=== PATIENT | female | born 1960 | race Caucasian/White ===

== ENCOUNTER → 2017-05-19 | Outpatient (CLI) | payer BC ==
--- NOTE | ~2017-05-19 | US128 ---
[id number] [address] [id number] O MR#: [id number] Acc #: [id number] NAME: AILEEN PAIGE : 1960 SEX: F STUDY DATE/TIME: 05/19/2017 9:41 UNIT: [facility] ROOM: STUDY DESCRIPTION: Thyroid Attending Physician: Panfilo Faustin M.D. Referring Physician: Panfilo Faustin M.D. Ordering Physician: Panfilo Faustin M.D. Primary Care Physician: Juma Aguiar M.D. MEDICAL IMAGING REPORT This report is preliminary unless electronic signature is present. EXAM Thyroid ultrasound, 05/19/2017 INDICATION 56-year-old female with history of thyroid nodules. TECHNIQUE Sonographic imaging of the thyroid gland was performed and compared with 10/07/2016 FINDINGS The right thyroid lobe measures 2.1 cm x 2.9 cm x 4.6 cm and the left 2.1 cm x 2.1 cm x 5.1 cm. There is heterogeneity of both thyroid lobes. Thyroid isthmus measures approximately 7 mm. Vascularity within normal limits. There are multiple small subcentimeter short-axis nodules in the right thyroid lobe. These do not meet criteria for fine-needle aspiration at this time. Some of these were also present on the prior study while other are not clear demonstrated on the prior examination. On the left there are also multiple small subcentimeter short-axis nodules. There is a dominant slightly larger nodule in the left thyroid lobe anteriorly that measures 19 mm x 10 mm. previously measuring 24 mm x 11 mm. Stability over the past 6 months is suggestive of a benign etiology. Suggest a repeat ultrasound in 6 months to document 1 year of stability. The next largest nodule on the left thyroid lobe measures 12 mm x 8 mm in the mid anterior thyroid lobe and can also be followed to reassess stability. No distinct additional nodules meeting size criteria for fine-needle aspiration at this time. IMPRESSION Mild thyromegaly with heterogeneous thyroid tissue bilaterally and multiple subcentimeter short-axis thyroid nodules. The largest nodule in the left thyroid lobe is not significantly changed from the prior study of 8 months ago. Suggest repeat ultrasound in 6 months to reassess for stability over the course of 1 year. The other smaller nodules can also be reassessed at that time. Dictated by... Wicho Gao M.D. THIS IS AN ELECTRONICALLY VERIFIED REPORT Wicho Gao M.D. at 05/21/2017 11:31 AM GAYATRI/rafael TD: 05/20/2017 20:52 JOB #: [id number] MEDICAL IMAGING REPORT Page 1 of 1
== END | disposition home or self-care (01) ==
LOC: SGUS 08:54
DX: E04.2 Nontoxic multinodular goiter (principal)
CPT/HCPCS: 76536